=== PATIENT | male | born 1985 | race American Indian/Alaskan Native ===

== ENCOUNTER 2020-09-25 07:22 | Emergency (ER) | payer BC, MEDICAID ==
[2020-09-25 07:33] VITALS: BP 133/80
--- NOTE | 2020-09-25 07:39 | Emergency Department Report ---
Chief Complaint: GI Bleed Stated Complaint: ABD PAIN Time Seen by Provider: 09/25/20 07:31 - HPI History of Present Illness: This is a 35-year-old male that presents with blood in stool with abdominal pain. Patient stated this been going on for several days. Patient does admit for cocaine and drug abuse. Patient otherwise denies any suicidal homicidal ideation. Patient also requested for STD testing. 1- This initial assessment/diagnostic orders/clinical plan/ treatment(s) is/are subject to change based on pt's health status, clinical progression and re- assessment by fellow clinical providers in the ED. Further treatment and workup at subsequent clinical provers discretion. Patient/guardians urged not to elope from ED as their condition may be serious if not clinically assessed and managed. After I instructed patient that labs and urine will be ordered for further evaluation, patient refused and stated "I just need my dchecked out". I then instructed to the patient that it is important that we examine his abdomen why he is having blood in his stool but patient refused, became very irritated and started to walk out. Patient was educated and instructed of my concerns and to stay for further evaluation and treatment but patient refused and walked out. I was not able to do a full physical assessment as patient as this was a medical screening and patient refused further treatment and assessment. 08:02 Patient came back to the ED and stated that he wants to be seen now. Will order lab work and UA to start the MSE process. - Exam Vital Signs: Vital Signs 09/25/20 07:29 Temperature 97.7 F Pulse Rate 104 H Respiratory 18 Rate Blood Pressure 133/80 O2 Sat by Pulse 99 Oximetry ED Disposition for MSE
[2020-09-25 09:02] LABS: Basophils % (Auto) 0.6 % (0.0-1.8); Eosinophils # (Auto) 0.1 K/mm3 (0.0-0.4); Eosinophils % (Auto) 2.5 % (0.0-4.3); Hematocrit 38.4 % (35.5-45.6); Hemoglobin 13.1 gm/dl (11.8-15.2); Lymphocytes # (Auto) 2.1 K/mm3 (1.2-5.4); Lymphocytes % (Auto) 35.9 % (13.4-35.0); Mean Corpuscular HGB Conc 34 % (32-34); Mean Corpuscular Volume 92 fl (84-94); Monocytes # (Auto) 0.5 K/mm3 (0.0-0.8); Monocytes % (Auto) 8.5 % (0.0-7.3); Platelet Count 311 K/mm3 (140-440); Red Blood Count 4.15 M/mm3 (3.65-5.03); Red Cell Distribution Width 14.1 % (13.2-15.2)
[2020-09-25 09:20] LABS: Alanine Aminotransferase 21 units/L (7-56); Albumin 4.1 g/dL (3.9-5); BUN/Creatinine Ratio 16; Blood Urea Nitrogen 18 mg/dL (9-20); Calcium 8.8 mg/dL (8.4-10.2); Hemolysis Index 5
--- NOTE | 2020-09-25 09:25 | Emergency Department Report ---
ED GI Bleed HPI - General Chief complaint: GI Bleed Stated complaint: ABD PAIN Time Seen by Provider: 09/25/20 07:31 Source: patient Mode of arrival: Ambulatory Limitations: No Limitations - History of Present Illness Initial comments: 35-year-old male presents to ED with 1 month history of rectal bleeding. Patient states the bleeding is light red. States sometimes he experiences blood only per rectum, and other times it is mixed in with stool. He reports some occasional abdominal cramping, no abdominal pain at this time. He denies any hemorrhoids, rectal pain, anal sex, nausea or vomiting. Patient states he is unsure if it is related to the drugs that he is using. Patient reports marijuana use. MD complaint: blood streaked stool, gross hematochezia -: month(s) (1) Quality: cramping Consistency: intermittent Improves with: none Worsens with: none Associated Symptoms: denies: nausea, vomiting, fever/chills - Related Data Allergies Allergy/AdvReac Type Severity Reaction Status Date / Time No Known Allergies Allergy Unverified 09/25/20 07:29 ED Review of Systems ROS: Stated complaint: ABD PAIN Other details as noted in HPI Comment: All other systems reviewed and negative Constitutional: denies: fever Gastrointestinal: abdominal pain, hematochezia. denies: nausea, vomiting ED Past Medical Hx - Past Medical History Previous Medical History?: No - Surgical History Past Surgical History?: No - Social History Smoking Status: Current Every Day Smoker Substance Use Type: Cocaine, Marijuana ED Physical Exam - General Limitations: No Limitations General appearance: alert, in no apparent distress - Head Head exam: Present: atraumatic, normocephalic - Eye Eye exam: Present: normal appearance, EOMI - ENT ENT exam: Present: mucous membranes moist - Neck Neck exam: Present: normal inspection - Respiratory Respiratory exam: Present: normal lung sounds bilaterally. Absent: respiratory distress - Cardiovascular Cardiovascular Exam: Present: regular rate, normal rhythm - GI/Abdominal GI/Abdominal exam: Present: soft. Absent: distended, tenderness - Rectal Rectal exam: Present: other (pt refused rectal exam) - Extremities Exam Extremities exam: Present: normal inspection - Neurological Exam Neurological exam: Present: alert, oriented X3 - Psychiatric Psychiatric exam: Present: normal affect, normal mood - Skin Skin exam: Present: warm, dry, intact, normal color ED Course Vital Signs 09/25/20 07:29 Temperature 97.7 F Pulse Rate 104 H Respiratory 18 Rate Blood Pressure 133/80 O2 Sat by Pulse 99 Oximetry ED Medical Decision Making - Lab Data Result diagrams: 09/25/20 08:29 09/25/20 08:29 - Medical Decision Making 35-year-old male presents to ED reporting rectal bleeding x1 month. Hemoglobin is normal. Vital signs are normal except for some slight tachycardia at triage. Patient refusing rectal exam. Hemoglobin is 13, remainder of labs are unremarkable. Outpatient follow-up with GI is encouraged, return precautions given. - Differential Diagnosis Hemorrhoids, diverticulosis, ulcer Critical care attestation.: If time is entered above; I have spent that time in minutes in the direct care of this critically ill patient, excluding procedure time. ED Disposition Clinical Impression: Rectal bleeding Disposition: - TO HOME OR SELFCARE Is pt being admited?: No Condition: Stable Instructions: Gastrointestinal Bleeding, [id number] Referrals: PRIMARY CARE [Primary Care Provider] - 3-5 Days [facility] [Provider Group] - 3-5 Days [facility] [Provider Group] - 3-5 Days Time of Disposition: 09:24
== END 2020-09-25 09:37 | disposition home or self-care (01) ==
LOC: ED 07:22
DX: K62.5 Hemorrhage of anus and rectum (principal); F17.200 Nicotine dependence, unspecified, uncomplicated; F12.10 Cannabis abuse, uncomplicated; F14.10 Cocaine abuse, uncomplicated
CPT/HCPCS: 36415; 80053; 83690; 85025; 99283

== ENCOUNTER 2020-10-19 20:44 | Emergency (ER) | payer SELFPAY ==
[2020-10-19 21:29] VITALS: BP 119/67
--- NOTE | 2020-10-19 21:45 | Emergency Department Report ---
Chief Complaint: Extremity Injury, Upper Stated Complaint: RT ARM PRESSURE - HPI History of Present Illness: 35-year-old -[place] male presents to the emergency room complaining of right arm feeling tingling and feels like his blood is racing down his arm. Patient denies any injury. Patient states this has been going on for 2 or 3 days. Patient is taking nothing for the discomfort. States that it is really not pain is just feels funny as his blood is racing on his arm. - Exam Vital Signs: Vital Signs 10/19/20 10/19/20 21:25 21:28 Temperature 98.3 F Pulse Rate 101 H Respiratory 18 Rate Blood Pressure 119/67 [Left] O2 Sat by Pulse 100 Oximetry Physical Exam: Alert and oriented x3 no acute distress nontoxic in appearance. Patient is very hyper. 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 No swelling appreciated no lesions appreciated multiple tattoos. Patient is ambulatory without difficulties. MSE screening note: Focused history and physical exam performed. Due to findings the following was ordered: 35-year-old -[place] male presents to the emergency room complaining of right arm feeling tingling and feels like his blood is racing down his arm. Patient denies any injury. Patient states this has been going on for 2 or 3 days. Patient is taking nothing for the discomfort. States that it is really not pain is just feels funny as his blood is racing on his arm. Discussed with patient to follow-up with her primary care provider. ED Disposition for MSE Disposition: MED SCREENING EXAM-LEFT Is pt being admited?: No Does the pt Need Aspirin: No Condition: Stable Additional Instructions: Patient should follow-up with a primary care provider. Referrals: [facility] [Provider Group] - 3-5 Days
== END 2020-10-19 21:45 | disposition left against medical advice (07) ==
LOC: ED 20:44
DX: M79.601 Pain in right arm (principal); Z53.21 Procedure and treatment not carried out due to patient leaving prior to being seen by health care provider